=== PATIENT | male | born 1970 | race Caucasian/White ===

== ENCOUNTER 2016-11-16 09:48 | Emergency (ER) | payer BC ==
[2016-11-16 10:23] VITALS: BP 143/86
--- NOTE | 2016-11-16 11:02 | UC ---
Skin Complaint HPI - HPI Summary HPI Summary: Found tick on L neck yesterday morning; was out for a run the night before and didn't see tick after shower. Thinks it was on for 12 hours or so. Here because he is not sure if he needs abx or not. - History of Current Complaint Hx Obtained From: Patient Onset/Duration: Sudden Onset Timing: Constant Onset Severity: Mild Current Severity: None Location: Discrete Character: Redness Aggravating: Nothing Alleviating: Nothing Associated Signs & Symptoms: Negative: Fever, Chills Related History: Insect Bite/Sting <Awilda Webb - Last Filed: 11/16/16 10:58> <Iris Leal - Last Filed: 11/16/16 11:18> - History of Current Complaint Chief Complaint: [facility] Time Seen by Provider: 11/16/16 10:41 Stated Complaint: TICK BITE - Allergy/Home Medications Allergies/Adverse Reactions: Allergies Allergy/AdvReac Type Severity Reaction Status Date / Time No Known Allergies Allergy Verified 06/03/15 09:15 Home Medications: Home Medications NK [No Home Medications Reported] 11/16/16 [History Confirmed 11/16/16] Review of Systems Constitutional: Negative Skin: Other - tick bite L neck Eyes: Negative ENT: Negative Respiratory: Negative Cardiovascular: Negative Gastrointestinal: Negative Genitourinary: Negative Motor: Negative Neurovascular: Negative Musculoskeletal: Negative Neurological: Negative Psychological: Negative All Other Systems Reviewed And Are Negative: Yes <Awilda Webb - Last Filed: 11/16/16 10:58> PMH/Surg Hx/FS Hx/Imm Hx Previously Healthy: Yes Endocrine History Of: Denies: Diabetes Cardiovascular History Of: Denies: Hypertension, Pacemaker/ICD - Surgical History Surgical History: Yes Surgery Procedure, Year, and Place: TONSILECTOMY AGE 37; 1993 RT [facility] - Family History Known Family History: Negative: Blood Disorder - Social History Occupation: Employed Full-time Lives: With Family Alcohol Use: Occasionally Substance Use Type: None Smoking Status (MU): Never Smoked Tobacco <Awilda Webb - Last Filed: 11/16/16 10:58> Physical Exam Triage Information Reviewed: Yes Appearance: Well-Appearing, No Pain Distress, Well-Nourished Vital Signs: Initial Vital Signs Temp 98.6 F 11/16/16 10:18 Pulse 75 11/16/16 10:18 Resp 16 11/16/16 10:18 BP 143/86 11/16/16 10:18 Pulse Ox 99 11/16/16 10:18 Vital Signs Reviewed: Yes Eye Exam: Normal Eyes: Positive: Conjunctiva Clear ENT Exam: Normal ENT: Positive: Normal ENT inspection, Hearing grossly normal, Pharynx normal, TMs normal Dental Exam: Normal Neck exam: Normal Neck: Positive: Supple, Nontender, No Lymphadenopathy Respiratory Exam: Normal Respiratory: Positive: Chest non-tender, Lungs clear, Normal breath sounds, No respiratory distress, No accessory muscle use Cardiovascular Exam: Normal Cardiovascular: Positive: RRR, No Murmur Musculoskeletal Exam: Normal Neurological Exam: Normal Neurological: Positive: Alert Psychological Exam: Normal Skin Exam: Other - tick bite site benign, normal L neck. No erythema or streaking. <Awilda Webb - Last Filed: 11/16/16 10:58> Vital Signs: Initial Vital Signs Temp 98.6 F 11/16/16 10:18 Pulse 75 11/16/16 10:18 Resp 16 11/16/16 10:18 BP 143/86 11/16/16 10:18 Pulse Ox 99 11/16/16 10:18 <Iris Leal - Last Filed: 11/16/16 11:18> Course/Dx - Diagnoses Provider Diagnoses: Tick bite removed [employer] <Awilda Webb - Last Filed: 11/16/16 10:58> Discharge <Awilda Webb - Last Filed: 11/16/16 10:58> <Iris Leal - Last Filed: 11/16/16 11:18> - Discharge Plan Condition: Stable Disposition: HOME Referrals: Manuel Canas MD [Medical Doctor] - Additional Instructions: TICK BITE: You have been bitten by a tick. Once the tick is removed, these "bites" usually cause no problems. Tick fever, tick paralysis, [place] Spotted fever, and Lyme disease are uncommon -- but you should mention this tick bite to your doctor if you develop unusual symptoms in the next several weeks. If you develop any of the following, please see your physician promptly: (1) Fever, chills, or generalized malaise associated with a headache. (2) A red round area at the site of the bite (or elsewhere) (3) Joint pain, joint swelling or generalized weakness. (4) Redness, swelling, or drainage at the site of the bite. Check yourself, your children and your pets for ticks whenever you've been in an area where ticks live. To remove a tick, grasp it firmly with some tweezers or a string in a slipknot as close to its head as possible and pull it steadily. Ticks do not have a typical "head" attached to their body. There are mouth parts sticking out which they use to feed. If there are mouth parts left behind in the wound there is no increased risk of Lyme infection; however, the chances of a bacterial skin infection (cellulitis) are higher. If mouth parts remain after tick removal, the best thing to do is apply warm soaks to the area 3-4 times per day to encourage the skin to expel the foreign material. WHEN A TICK IS NOT ENGORGED AND HAS BEEN ON LESS THAN 24 HOURS - THE RISK FOR LYME IS NEGLIGIBLE. YOU CAN REMOVE THE TICK AND OBSERVE THE AREA ON YOUR OWN. FOLLOW-UP CARE: You should contact your private physician for follow-up care if you develop spreading redness near the site of the bite or on any other areas of the body. If you are unable to get a timely appointment, or if you are worsening, call us or return for re-evaluation. Attestation Statement User Type: Provider - I was available for consult. This patient was seen by the [facility]. The patient was not presented to, seen by, or examined by me. <Iris Leal - Last Filed: 11/16/16 11:18>
== END 2016-11-16 11:00 | disposition home or self-care (01) ==
LOC: UCEAST 09:48
DX: S10.96XA Insect bite of unspecified part of neck, initial encounter (principal); W57.XXXA Bitten or stung by nonvenomous insect and other nonvenomous arthropods, initial encounter; Y92.9 Unspecified place or not applicable
CPT/HCPCS: 99211; G0463